=== PATIENT | female | born 1950 | race Caucasian/White ===

== ENCOUNTER 2016-07-19 19:19 | Emergency (ER) | payer SELFPAY ==
[~2016-07-19] VITALS: Ht 152.4 cm; Wt 55.0 kg
[~2016-07-19 19:19] MED LIST: AMLODIPINE PO
[2016-07-19 19:24] VITALS: Ht 152.4 cm; Wt 55.0 kg
== END 2016-07-20 00:39 | disposition left against medical advice (07) ==
LOC: FTE 19:19
DX: Z53.21 Procedure and treatment not carried out due to patient leaving prior to being seen by health care provider (principal)

== ENCOUNTER 2017-12-01 07:47 | Emergency (ER) | END 2017-12-01 10:06 | disposition home or self-care (01) ==

== ENCOUNTER 2018-07-05 06:31 | Day surgery (SDC) | payer OTHER ==
[~2018-07-05] VITALS: Ht 152.4 cm; Wt 51.6 kg
[~2018-07-05 06:31] MED LIST changes: +ACET500C5 PO; +CARB15DR3 LEFT EYE; +HYDR-4011 PO
[2018-07-05] MEDS ORDERED: HTN MED PO (07:12)
[2018-07-05] MEDS ORDERED: OSTEOPOROSIS MED PO (07:12)
[2018-07-05 07:13] VITALS: Ht 152.4 cm; Wt 51.6 kg
[2018-07-05 07:20] VITALS: BP 168/79; PULSE 66; RESP 20
[2018-07-05] MEDS ORDERED: FENTAnyl 50 MCG/ML VIAL ONE (08:00)
[2018-07-05] MEDS ORDERED: MIDAZOLAM 1 MG/ML 2 ML INJ ONE ×2 (08:00)
[2018-07-05 08:22] VITALS: BP 138/77; RESP 15
--- NOTE | 2018-07-05 11:19 | CONS ---
DATE OF ADMISSION: 07/05/2018 DATE OF CONSULTATION: PATIENT NAME: RADHA MARTEL TYPE OF CONSULTATION: Preoperative gastroenterology. Dear Dr. Hong: I thank you very much for this kind referral. HISTORY OF PRESENT ILLNESS: Ms. Radha Martel is a 68-year-old female patient who has been referred t o me for further evaluation of upper abdominal pain, which is not responding to symptomatic medical t herapy. The patient is status post surgery for gastric cancer. She also had chemotherapy and radiat ion. Her appetite has been good and she is not losing any weight. She is not taking any nonsteroida l anti-inflammatory agents. No history of gallstones or liver disease. The patient denies any rosario e in the bowel habit or rectal bleeding. The patient had colonoscopy 4-1/2 years ago and no colon ne oplasm was identified. She is hypertensive. Not a diabetic. No heart disease, lung problem or kidn ey disease. SOCIAL HISTORY: Nonsmoker. No alcohol abuse. FAMILY HISTORY: No family history of gastrointestinal tract neoplasm. ALLERGIES: NO DRUG ALLERGIES. MEDICATIONS: 1. Amlodipine. 2. Medicine for osteoporosis. PHYSICAL EXAMINATION: VITAL SIGNS: She is 5 feet tall and weighs 118 pounds. HEART: Normal heart sounds. LUNGS: Clear. ABDOMEN: Soft. No masses. Normal bowel sounds. NEUROLOGIC: Normal. IMPRESSION: 1. Upper abdominal pain. 2. Status post surgery, radiation and chemotherapy for gastric cancer. 3. The patient had a colonoscopy 4-1/2 years ago and no colon neoplasm was identified. 4. Hypertension. PLAN: Upper endoscopy for further evaluation. The procedure and possible complications were well explained to the patient. The patient understands and consents to the procedure. I thank you once again. With warmest personal regards, Dictated By: PREET HANNON/ARMINDA Conf#: [id number] DID#: [id number]
== END 2018-07-05 15:32 | disposition home or self-care (01) ==
LOC: GIL 06:31
PROVIDERS: ATTEND Internal Medicine Gastroenterology
DX: K29.50 Unspecified chronic gastritis without bleeding (principal)
CPT/HCPCS: 43239; 88305; 88312; J2250; J3010

== ENCOUNTER 2018-08-21 06:19 | Emergency (ER) | payer OTHER ==
[~2018-08-21] VITALS: Ht 152.4 cm; Wt 51.7 kg
[~2018-08-21 06:19] MED LIST changes: -ACET500C5 PO; -AMLODIPINE PO; -CARB15DR3 LEFT EYE; +HTN MED PO; -HYDR-4011 PO; +OSTEOPOROSIS MED PO
[2018-08-21 06:21] VITALS: Ht 152.4 cm; Wt 51.7 kg
[2018-08-21] MEDS ORDERED: morphine 4 MG/ML VIAL IV STA (06:28)
[2018-08-21] MEDS ORDERED: ONDANSETRON 4 MG INJ IV STA (06:28)
[2018-08-21] MEDS ORDERED: ONDA4TAB14 PO (08:30)
[2018-08-21] MEDS ORDERED: IBUP-1542 PO (08:30)
--- NOTE | 2018-08-21 08:32 | ERD ---
ER Documentation Chief Complaint Chief Complaint Upper abd pain over 4 weeks that is getting worse, hx stomach CA HPI Patient is a 68-year-old female with hypertension who presents with abdominal pain. The patient said that she started 4 weeks ago with abdominal pain. It comes and goes and is worse in the morning. She said the pain is worse with eating. She has had subjective fevers. She denies vomiting or diarrhea. She had an endoscopy done in June. She was told that if she has pain she would need a CT scan so she came to the ER to get her CT scan. She does have a primary doctor. ROS All systems reviewed and are negative except as per history of present illness. Medications Home Meds Active Scripts Ondansetron (Ondansetron Odt) 4 Mg Tab.rapdis, 4 MG PO Q6H PRN for NAUSEA AND/OR VOMITING, #10 TAB Prov:ALVARADO KAMARA MD 08/21/18 Ibuprofen* (Motrin*) 600 Mg Tab, 600 MG PO Q6H PRN for PAIN AND OR ELEVATED TEMP, #30 TAB Prov:ALVARADO KAMARA MD 08/21/18 Reported Medications [Osteoporosis Med] No Conflict Check, PO DAILY 07/05/18 [Htn Med] No Conflict Check, PO DAILY 07/05/18 Allergies Allergies: Coded Allergies: No Known Allergy (Unverified , 08/21/18) PMhx/Soc History of Surgery: Yes (EGD, COLON, GASTRIC) Anesthesia Reaction: No Hx Neurological Disorder: No Hx Respiratory Disorders: No Hx Cardiac Disorders: Yes (HTN) Hx Psychiatric Problems: No Hx Miscellaneous Medical Probl: No Hx Alcohol Use: No Hx Substance Use: No Hx Tobacco Use: No Smoking Status: Never smoker FmHx Family History: diabetes Physical Exam Vitals Vital Signs Date Temp Pulse Resp B/P (MAP) Pulse Ox O2 O2 Flow FiO2 Time Delivery Rate 08/21/18 98.6 56 18 137/87 100 Room Air 07:22 (104) 08/21/18 98.1 75 16 151/72 100 06:21 (98) Physical Exam Const: No acute distress Head: Atraumatic Eyes: Normal Conjunctiva ENT: Normal External Ears, Nose and Mouth. Neck: Full range of motion. No meningismus. Resp: Clear to auscultation bilaterally Cardio: Regular rate and rhythm, no murmurs Abd: Soft, non tender, non distended. Normal bowel sounds Skin: No petechiae or rashes Back: No midline or flank tenderness Ext: No cyanosis, or edema Neur: Awake and alert Psych: Normal Mood and Affect Result Diagram: 08/21/1871908/21/18 0720 Results 24 hrs Laboratory Tests Test 08/21/18 07:20 White Blood Count 6.1 10^3/ul Red Blood Count 4.13 10^6/ul Hemoglobin 11.6 g/dl Hematocrit 35.0 % Mean Corpuscular Volume 84.7 fl Mean Corpuscular Hemoglobin 28.1 pg Mean Corpuscular Hemoglobin Concent 33.1 g/dl Red Cell Distribution Width 15.0 % Platelet Count 327 10^3/UL Mean Platelet Volume 10.3 fl Immature Granulocytes % 0.300 % Neutrophils % 64.7 % Lymphocytes % 21.8 % Monocytes % 9.5 % Eosinophils % 2.9 % Basophils % 0.8 % Nucleated Red Blood Cells % 0.0 /100WBC Immature Granulocytes # 0.020 10^3/ul Neutrophils # 4.0 10^3/ul Lymphocytes # 1.3 10^3/ul Monocytes # 0.6 10^3/ul Eosinophils # 0.2 10^3/ul Basophils # 0.1 10^3/ul Nucleated Red Blood Cells # 0.0 10^3/ul Urine Color YELLOW Urine Clarity CLEAR Urine pH 5.0 Urine Specific [place] 1.013 Urine Ketones NEGATIVE mg/dL Urine Nitrite NEGATIVE mg/dL Urine Bilirubin NEGATIVE mg/dL Urine Urobilinogen NEGATIVE mg/dL Urine Leukocyte Esterase NEGATIVE [place]/ul Urine Microscopic RBC 1 /HPF Urine Microscopic WBC 2 /HPF Urine Hemoglobin NEGATIVE mg/dL Urine Glucose NEGATIVE mg/dL Urine Total Protein 2+ mg/dl Sodium Level 139 mmol/L Potassium Level 3.8 mmol/L Chloride Level 100 mmol/L Carbon Dioxide Level 29 mmol/L Anion Gap 10 Blood Urea Nitrogen 37 mg/dl Creatinine 1.62 mg/dl Est Glomerular Filtrat Rate mL/min 32 mL/min Glucose Level 93 mg/dl Calcium Level 8.7 mg/dl Total Bilirubin 0.2 mg/dl Direct Bilirubin 0.00 mg/dl Indirect Bilirubin 0.2 mg/dl Aspartate Amino Transf (AST/SGOT) 34 IU/L Alanine Aminotransferase (ALT/SGPT) 28 IU/L Alkaline Phosphatase 99 IU/L Troponin I < 0.012 ng/ml Total Protein 7.4 g/dl Albumin 3.8 g/dl Globulin 3.60 g/dl Albumin/Globulin Ratio 1.05 Lipase 97 U/L Current Medications Medications Dose Sig/Juan F Start Time Status Last (Trade) Ordered Route PRN Stop Time Admin Dose Reason Admin Morphine 4 mg ONCE STAT 08/21/18 DC 08/21/18 Sulfate IV 06:28 07:06 (morphine) 08/21/18 06:29 Ondansetron 4 mg ONCE STAT 08/21/18 DC 08/21/18 HCl (Zofran IV 06:28 07:06 Inj) 08/21/18 06:29 Procedures/MDM EKG read by me: Rate/Rhythm: Sinus bradycardia rate of 57 Intervals: Normal Impression: Sinus bradycardia without ischemia CT abdomen pelvis read by radiology. Patient is a 68-year-old female who presents with abdominal pain. Laboratory studies are basically normal. CT scan shows no sign of surgical process at this time. I doubt appendicitis, cholecystitis, pancreatitis, or bowel obstruction. The patient will be discharged and I have given her copies of her laboratory studies and CT scan report. She will need to follow-up with her primary doctor within 24-48 hours for reevaluation. Departure Diagnosis: Primary Impression: Abdominal pain Abdominal location: generalized Qualified Codes: R10.84 - Generalized abdominal pain Condition: Fair Patient Instructions: Abdominal Pain Referrals: Your doctor Additional Instructions: Llame al doctor MAANA y suki ruba GEENA PARA DENTRO DE 1-2 PICKETT.Dgale a la secretaria que nosotros le instruimos hacer esta geena.Avise o llame si powers condicin se empeora antes de la geena. Regresa aqui si peor o no mejor. ALVARADO KAMARA MD Aug 21, 2018 08:32
[2018-08-21 08:53] VITALS: BP 107/56; PULSE 56; RESP 17
== END 2018-08-21 09:10 | disposition home or self-care (01) ==
LOC: E/R 06:19
DX: R10.84 Generalized abdominal pain (principal); I10 Essential (primary) hypertension; Z85.028 Personal history of other malignant neoplasm of stomach
CPT/HCPCS: 36415; 74176; 80053; 81001; 83690; 84484; 85025; 93005; 96374; 96375; 99285; J2270; J2405

== ENCOUNTER 2018-12-12 23:14 | Emergency (ER) | payer OTHER ==
[~2018-12-12] VITALS: Ht 149.9 cm; Wt 50.0 kg
[~2018-12-12 23:14] MED LIST changes: +HC30CR25 TOP; +IBUP-1542 PO; +MED4DP PO; +ONDA4TAB14 PO
[2018-12-12 23:32] VITALS: BP 154/80; PULSE 78; RESP 16; Ht 149.9 cm; Wt 50.0 kg
--- NOTE | 2018-12-14 05:39 | ERD ---
ER Documentation Chief Complaint Chief Complaint DIARRHEA X 3 DAYS, ALLERGIC REACTION TO MEDICATION HPI This is a 60-year-old female presenting to the emergency department complaining of allergic reaction to medication. She started taking metoprolol for blood pressure today and became very itchy. She states this is a new medication for her. She denies any headache, dizziness, syncope, chest pain, or other symptoms at this time. Symptoms are currently mild to moderate. She tried no medication for relief of allergies. ROS All systems reviewed and are negative except as per history of present illness. Medications Home Meds Active Scripts Hydrocortisone* Topical (Hydrocortisone* Topical) 2.5%-28.3 Gm Cream..g., 1 APPLIC TOP BID, #1 TUB Prov:ROSI SUBRAMANIAN PA-C 12/13/18 Methylprednisolone* (Medrol* DOSE PACK) 4 Mg/Dose-Pack Tab.ds.pk, 4 MG PO . DIRECTED, #1 PACKET Prov:ROSI SUBRAMANIAN PA-C 12/13/18 Ondansetron (Ondansetron Odt) 4 Mg Tab.rapdis, 4 MG PO Q6H PRN for NAUSEA AND/OR VOMITING, #10 TAB Prov:ALVARADO KAMARA MD 08/21/18 Ibuprofen* (Motrin*) 600 Mg Tab, 600 MG PO Q6H PRN for PAIN AND OR ELEVATED TEMP, #30 TAB Prov:ALVARADO KAMARA MD 08/21/18 Reported Medications [Osteoporosis Med] No Conflict Check, PO DAILY 07/05/18 [Htn Med] No Conflict Check, PO DAILY 07/05/18 Allergies Allergies: Coded Allergies: No Known Allergy (Unverified , 08/21/18) PMhx/Soc History of Surgery: Yes (EGD, COLON, GASTRIC) Anesthesia Reaction: No Hx Neurological Disorder: No Hx Respiratory Disorders: No Hx Cardiac Disorders: Yes (HTN) Hx Psychiatric Problems: No Hx Miscellaneous Medical Probl: No Hx Alcohol Use: No Hx Substance Use: No Hx Tobacco Use: No Smoking Status: Never smoker FmHx Family History: No diabetes Physical Exam Vitals Vital Signs Date Temp Pulse Resp B/P (MAP) Pulse Ox O2 O2 Flow FiO2 Time Delivery Rate 12/12/18 98.3 78 16 154/80 98 23:32 (104) Physical Exam Const: No acute distress Head: Atraumatic Eyes: Normal Conjunctiva ENT: Normal External Ears, Nose and Mouth. Neck: Full range of motion. No meningismus. Resp: Clear to auscultation bilaterally. No respiratory distress. Cardio: Regular rate and rhythm, no murmurs Abd: Soft, non tender, non distended. Normal bowel sounds Skin: Urticarial type rash scattered on the body. Back: No midline or flank tenderness Ext: No cyanosis, or edema Neur: Awake and alert Psych: Normal Mood and Affect Procedures/MDM 68-year-old female presents to the emergency department with signs and symptoms most consistent with allergy or intolerance to a new drug. Patient recently started taking metoprolol. Patient's dermatologic symptoms have stabilized while they have been evaluated in the department and are appropriate for outpatient work up. No evidence of Myles Aaron's syndrome, Kawasaki's, or sepsis. Immunologic Assessment: Patient's allergic symptoms have stabilized while they have been evaluated in the department without evidence of persistent systemic reaction. Patient is healthy and capable of treating and responding to rebound reactions. Patient appropriate for outpatient allergy work up and treatment. No evidence of life-threatening pathology at time of discharge. Pt/family in agreement with discharge plan/diagnosis. Pt/family advised to return immediately with any new or worsening symptoms. Follow-up with primary care physician within the next 1- 2 days. Patient's blood pressure was elevated (>120/80) but appears stable without evidence of hypertension emergency or urgency. The patient is to follow-up and pursue outpatient monitoring and therapy with their primary care physician within 1 week and return immediately if they have any new, worsening, or concerning symptoms. Disclaimer: Inadvertent spelling and grammatical errors are likely due to EHR/dictation software use and do not reflect on the overall quality of patient care. Also, please note that the electronic time recorded on this note does not necessarily reflect the actual time of the patient encounter. Departure Diagnosis: Primary Impression: Rash and other nonspecific skin eruption Additional Impression: Rash Condition: Fair Patient Instructions: Hives Referrals: [facility] Usted se no hecho un examen mdico de control que le indica que no est en ruba condicin que requiera tratamiento urgente en el Departamento de Emergencia. Un estudio ms profundo y el tratamiento de powers condicin pueden esperar sin ningn riesgo hasta que usted sea atendida/o en el consultorio de powers mdico o ruba clnica. Es responsabilidad suya arreglar ruba geena para el seguimiento del liang. MANEJO DE CONDICIONES NO URGENTES EN EL FUTURO 1) Si usted tiene un mdico de atencin primaria: Usted debera llamar a powers mdico de atencin primaria antes de venir al departamento de emergencia. Despus de las horas de consultorio, powers doctor o powers asociado/a est disponible por telfono. El mdico o enfermero de louise en el servicio telefnico puede asesorarle por calin medio para atender el problema, o liang contrario se puede programar ruba geena. 2) Si usted no tiene un mdico de atencin primaria: Llame al mdico o clnica de referencia que aparece abajo merry las horas de consultorio para hacer ruba geena para que le vean. CLINICAS: [facility] [phone] [facility] [facility] [phone] [facility] [facility] [phone] [facility] [place] [id number] [phone] [facility] [place] [address] [phone] [facility]. [phone] [address] Additional Instructions: Llame al doctor MAANA y suki ruba GEENA PARA DENTRO DE 1-2 PICKETT.Dgale a la secretaria que nosotros le instruimos hacer esta geena.Avise o llame si powers condicin se empeora antes de la geena. Regresa aqui si peor o no mejor. ROSI SUBRAMANIAN PA-C Dec 14, 2018 05:39
== END 2018-12-13 02:44 | disposition home or self-care (01) ==
LOC: FTE 23:14
DX: L50.9 Urticaria, unspecified (principal); I10 Essential (primary) hypertension
CPT/HCPCS: 99283

== ENCOUNTER 2018-12-14 21:09 | Emergency (ER) | payer OTHER ==
[~2018-12-14] VITALS: Ht 157.5 cm; Wt 51.0 kg
[2018-12-14 21:16] VITALS: Ht 157.5 cm; Wt 51.0 kg
--- NOTE | 2018-12-14 22:18 | ERD ---
ER Documentation Chief Complaint Chief Complaint LEFT EYE PAIN / TONY HPI The patient is a 68-year-old female, presenting to the ER because of left eye pain and left-sided headache when she began her metoprolol 2 weeks ago intermittently. She believes that the medication metoprolol because her symptoms. She denies fever, chills, syncope, near syncope, neck pain, chest pain, dyspnea, abdominal pain, vomiting, dysuria, diarrhea. She does not smoke nor drink Past medical history: Hypertension, osteoporosis Past surgical history: Gastric cancer status post surgery/chemotherapy/radiation therapy ROS All systems reviewed and are negative except as per history of present illness. Medications Home Meds Discontinued Reported Medications [Osteoporosis Med] No Conflict Check, PO DAILY 07/05/18 [Htn Med] No Conflict Check, PO DAILY 07/05/18 Discontinued Scripts Hydrocortisone* Topical (Hydrocortisone* Topical) 2.5%-28.3 Gm Cream..g., 1 APPLIC TOP BID, #1 TUB Prov:ROSI SUBRAMANIAN PA-C 12/13/18 Methylprednisolone* (Medrol* DOSE PACK) 4 Mg/Dose-Pack Tab.ds.pk, 4 MG PO . DIRECTED, #1 PACKET Prov:ROSI SUBRAMANIAN PA-C 12/13/18 Ondansetron (Ondansetron Odt) 4 Mg Tab.rapdis, 4 MG PO Q6H PRN for NAUSEA AND/OR VOMITING, #10 TAB Prov:ALVARADO KAMARA MD 08/21/18 Ibuprofen* (Motrin*) 600 Mg Tab, 600 MG PO Q6H PRN for PAIN AND OR ELEVATED TEMP, #30 TAB Prov:ALVARADO KAMARA MD 08/21/18 Allergies Allergies: Coded Allergies: No Known Allergy (Unverified , 08/21/18) PMhx/Soc History of Surgery: Yes (EGD, COLON, GASTRIC) Anesthesia Reaction: No Hx Neurological Disorder: No Hx Respiratory Disorders: No Hx Cardiac Disorders: Yes (HTN) Hx Psychiatric Problems: No Hx Miscellaneous Medical Probl: No Hx Alcohol Use: No Hx Substance Use: No Hx Tobacco Use: No Smoking Status: Never smoker Physical Exam Vitals Vital Signs Date Temp Pulse Resp B/P (MAP) Pulse Ox O2 O2 Flow FiO2 Time Delivery Rate 12/15/18 66 14 138/87 99 Room Air 00:01 (104) 12/14/18 74 16 186/93 99 Room Air 22:34 (124) 12/14/18 98.7 73 19 167/79 99 21:16 (108) Physical Exam Const: No acute distress. Head: Atraumatic. Eyes: Normal Conjunctiva. ENT: Normal External Ears, Nose and Mouth. Neck: Full range of motion. No meningismus. Resp: Clear to auscultation bilaterally. Cardio: Regular rate and rhythm. Abd: Soft, non distended, normal bowel sounds, non tender. Skin: No petechiae or rashes. Back: No midline or flank tenderness. Ext: No cyanosis, or edema. Neur: Awake and alert. No focal deficit Psych: Normal Mood and Affect. Results 24 hrs Current Medications Medications Dose Sig/Juan F Start Time Status Last (Trade) Ordered Route PRN Stop Time Admin Dose Reason Admin Tetracaine 4 drop ONCE STAT 12/14/18 DC 12/14/18 HCl LEFT EYE 22:35 12/14/18 22:41 (Tetracaine 22:36 0.5% Steri-Unit Margo) 650 mg ONCE ONCE 12/15/18 DC 12/14/18 Acetaminophen PO 00:00 23:41 (Tylenol 12/15/18 00:01 Tab) Procedures/MDM Left eye intraocular pressure 16, right eye intraocular pressure 18 Visual acuity unchanged compared to last year when she had similar symptom and she also had a negative brain CT MEDICAL MAKING DECISION: The patient is a 68-year-old female, presenting with acute left eye pain of unclear etiology, I do not suspect this is caused by metoprolol. The differential diagnoses considered include but are not limited to allergic conjunctivitis, bacterial conjunctivitis, glaucoma, anxiety Departure Diagnosis: Primary Impression: Left eye pain Condition: Good Comments She was discharged with Tylenol and I discussed the findings with the patient. I advised the patient to follow-up with the local hearing aid technician Dr Vásquez about 1-2 days, sooner if needed and return if any concern. Disclaimer: Inadvertent spelling and grammatical errors are likely due to EHR/dictation software use and do not reflect on the overall quality of patient care. Also, please note that the electronic time recorded on this note does not necessarily reflect the actual time of the patient encounter. YOHANNES GAMINO MD Dec 14, 2018 22:18
[2018-12-14] MEDS ORDERED: TETRACAINE 0.5% 4 ML OPH LEFT EYE STA (22:35)
[2018-12-15] MEDS ORDERED: ACETAMINOPHEN 325 MG TAB PO ONE
[2018-12-15 00:01] VITALS: BP 138/87; PULSE 66; RESP 14
== END 2018-12-15 00:02 | disposition home or self-care (01) ==
LOC: E/R 21:09
DX: H57.12 Ocular pain, left eye (principal); I10 Essential (primary) hypertension
CPT/HCPCS: 99282